=== PATIENT | male | born 1990 | race Asian ===

== ENCOUNTER 2022-04-29 05:50 | Emergency (ER) | payer BC ==
[~2022-04-29] VITALS: Ht 172.7 cm; Wt 74.9 kg
[2022-04-29 06:30] VITALS: BP 110/75
[2022-04-29] MEDS ORDERED: BUDE180A INH (09:00)
[2022-04-29] MEDS ORDERED: LIDO20SO16 PO (09:00)
[2022-04-29] MEDS ORDERED: NIRM1TAB PO (09:00)
[2022-04-29] MEDS ORDERED: ALBU6.7H14 INH (09:00)
[2022-04-29] MEDS ORDERED: DEXA6TAB PO (09:00)
== END 2022-04-29 09:14 | disposition home or self-care (01) ==
LOC: ER 05:51
DX: U07.1 COVID-19 (principal); B34.9 Viral infection, unspecified; J02.9 Acute pharyngitis, unspecified; R05.9 Cough, unspecified; Z79.899 Other long term (current) drug therapy
CPT/HCPCS: 87081; 87502; 87503; 87635; 87880; 99283; C9803